=== PATIENT | female | born 1965 | race Caucasian/White ===

== ENCOUNTER 2021-08-29 16:53 | Emergency (ER) | payer MEDICARE, OTHER ==
[2021-08-29] MEDS ORDERED: Aspirin 81 MG Tab.Chew PO ONE (17:20)
[2021-08-29] MEDS: Aspirin 81 MG Tab.Chew ONE (17:20)
[2021-08-29 17:41] LABS: ANION GAP 11.3 mmol/L (5-15); CHLORIDE,CL 103 mmol/L (98-107); SODIUM,NA 138 mmol/L (136-145)
[2021-08-29 17:47] VITALS: BP 125/70; PULSE 97
[2021-08-30] MEDS: Aspirin 81 MG Tab.Chew ONE (12:55)
== END 2021-08-29 18:10 | disposition home or self-care (01) ==
LOC: KA.ED 16:53
DX: R07.89 Other chest pain (principal)
CPT/HCPCS: 36415; 71045; 80053; 84484; 85025; 93010; 99284; 99285-25; A9270-GY